=== PATIENT | female | born 1990 | race Two or more races ===

== ENCOUNTER 2018-10-26 04:16 | Emergency (ER) | payer OTHER ==
[~2018-10-26] VITALS: Ht 152.4 cm; Wt 78.2 kg
[2018-10-26 04:21] VITALS: Ht 152.4 cm; Wt 78.2 kg
[2018-10-26 05:20] VITALS: BP 132/78
== END 2018-10-26 05:20 | disposition home or self-care (01) ==
LOC: ED 04:16
DX: L50.9 Urticaria, unspecified (principal); Z88.8 Allergy status to other drugs, medicaments and biological substances; Z90.49 Acquired absence of other specified parts of digestive tract; Z90.89 Acquired absence of other organs
CPT/HCPCS: J2930

== ENCOUNTER 2019-07-18 07:18 | Emergency (ER) | payer OTHER ==
[~2019-07-18] VITALS: Ht 162.6 cm; Wt 76.7 kg
[2019-07-18 07:30] VITALS: Ht 162.6 cm; Wt 76.7 kg
[2019-07-18 07:58] LABS: BASOPHIL % 0.1 % (0-2); PLATELET COUNT 303 x10^3mcL (130-400); RED CELL DISTRIBUTION WIDTH 15.4 % (11.5-14.5)
[2019-07-18 08:13] LABS: CALCIUM 9.2 mg/dL (8.5-10.1); CARBON DIOXIDE 27.3 mmol/L (21-32); CHLORIDE SERUM 104 mmol/L (98-107); CREATININE SERUM 0.6 mg/dL (0.6-1.0); GFR1 > 60 mL/min; GLUCOSE SERUM 102 mg/dL (74-106); POTASSIUM SERUM 3.7 mmol/L (3.5-5.1); SODIUM SERUM 140 mmol/L (136-145)
[2019-07-18 08:17] LABS: ALBUMIN 3.5 g/dL (3.4-5.0); ALKALINE PHOSPHATASE 78 U/L (46-116); ALT/SGPT 22 U/L (14-59); AST/SGOT 14 U/L (15-37); BILIRUBIN TOTAL 0.5 mg/dL (0.20-1.00); HDL CHOLESTEROL 50 mg/dL (40-60); TOTAL PROTEIN, SERUM 7.8 g/dL (6.4-8.2); TRIGLYCERIDES 97 mg/dL (<150)
[2019-07-18 08:18] LABS: CHOLESTEROL 215 mg/dL (<200); CHOLESTEROL/HDL RATIO 4.3
[2019-07-18 08:37] LABS: microscopic required? YES; urine erythrocyte 3+ (NEGATIVE)
[2019-07-18 10:44] VITALS: BP 102/64
== END 2019-07-18 10:44 | disposition home or self-care (01) ==
LOC: ED 07:18
PROVIDERS: Specialist
DX: S39.012A Strain of muscle, fascia and tendon of lower back, initial encounter (principal); Z90.89 Acquired absence of other organs; Z87.19 Personal history of other diseases of the digestive system; Z88.8 Allergy status to other drugs, medicaments and biological substances; X58.XXXA Exposure to other specified factors, initial encounter; Y93.89 Activity, other specified; Y92.89 Other specified places as the place of occurrence of the external cause; Y99.8 Other external cause status
CPT/HCPCS: J1885; J2405; J3010; J7030